=== PATIENT | female | born 1950 | race African-American/Black ===

== ENCOUNTER 2020-04-26 18:12 | Inpatient (IN) | payer BC, MEDICARE ==
[~2020-04-26] VITALS: Ht 172.7 cm; Wt 92.0 kg
[2020-04-26] MEDS ORDERED: ISOS10TA53 PO (18:35)
[2020-04-26] MEDS ORDERED: ABIL5 PO (18:35)
[2020-04-26] MEDS ORDERED: LISI-186 PO (18:35)
[2020-04-26] MEDS ORDERED: GABA-532 PO (18:35)
[2020-04-26] MEDS ORDERED: ASPI-1497 PO (18:35)
[2020-04-26] MEDS ORDERED: METO25TA6 PO (18:35)
[2020-04-26] MEDS ORDERED: FERR15DR7 PO (18:35)
[2020-04-26] MEDS ORDERED: ATOR-2 MT (18:35)
[2020-04-26] MEDS ORDERED: NALT50TA5 GT (18:35)
[2020-04-26] MEDS ORDERED: TRAZ150T78 MT (18:35)
[2020-04-26] MEDS ORDERED: SODIUM CHLORIDE 0.9% 1,000 ML IV ONE (18:45)
[2020-04-26 19:51] LABS: BASOPHILS % 0.6 % (0.0-2.0); EOSINOPHILS % 2.1 % (0.0-5.0); HEMATOCRIT. 39.2 % (36.0-48.0); LYMPHOCYTES % 18.3 % (20.0-50.0); MEAN CORPUSCULAR HEMOGLOBIN 30.6 pg (28.0-32.0); MEAN CORPUSCULAR VOLUME 92.2 fL (81.0-99.0); MEAN PLATELET VOLUME 10.9 fl (7.4-10.4); MONOCYTES % 6.1 % (2.0-8.0); NEUTROPHILS % 72.9 % (40.0-76.0); PLATELET 129 x1000/uL (130-400); RED BLOOD CELL COUNT 4.25 mill/uL (4.2-5.4); RED CELL DISTRIBUTION WIDTH 12.8 % (11.6-14.6)
[2020-04-26 19:52] LABS: PROTHROMBIN TIME 10.3 sec (9.6-11.0)
[2020-04-26 19:53] LABS: CHLORIDE 107 mEq/L (98-107)
[2020-04-26 20:00] LABS: LDL CHOLESTEROL 75 mg/dL (5-100)
[2020-04-26] MEDS ORDERED: MAGNESIUM/ALUMINUM HYDROXIDE/SIMETHICONE 30ML UDC PO PRN (20:45)
[2020-04-26] MEDS ORDERED: DOCUSATE SODIUM 100MG CAPSULE PO PRN (20:45)
[2020-04-26] MEDS ORDERED: CLONIDINE 0.1MG TABLET PO PRN (20:45)
[2020-04-26] MEDS ORDERED: ACETAMINOPHEN 325MG TABLET PO PRN (20:45)
[2020-04-26] MEDS ORDERED: ONDANSETRON HCL 4MG/2ML INJ IV PRN (20:45)
[2020-04-26] MEDS ORDERED: GUAIFENESIN 200MG/10ML SUGAR FREE UDC PO PRN (20:45)
[2020-04-26] MEDS ORDERED: CHLORTHALIDONE 25MG TABLET PO SCH (21:00)
[2020-04-26] MEDS ORDERED: ASPIRIN 81MG TABLET PO ONE (21:00)
[2020-04-26] MEDS ORDERED: ISOSORBIDE DINITRATE 10MG TABLET PO SCH (21:00)
[2020-04-26] MEDS ORDERED: LISINOPRIL 5MG TABLET PO SCH (21:00)
[2020-04-26] MEDS ORDERED: METOPROLOL TARTRATE 25MG TABLET PO SCH (21:00)
[2020-04-27 02:52] VITALS: BP 189/80
[2020-04-27] MEDS ORDERED: ASPIRIN 81MG EC TABLET PO SCH (09:00)
[2020-04-27] MEDS ORDERED: CLOPIDOGREL 75MG TABLET PO SCH (09:00)
== END 2020-04-27 05:51 | disposition left against medical advice (07) | DRG 300 ==
LOC: ER 18:12 → MICUSO 19:33 → EDBEDREQTM 20:18 → EDBEDREQ 20:18 → 3WST 04-27 02:04
PROVIDERS: ADMIT Hospitalist; ATTEND Hospitalist
DX: I70.90 Unspecified atherosclerosis (principal); I24.8 Other forms of acute ischemic heart disease; G45.9 Transient cerebral ischemic attack, unspecified; E11.9 Type 2 diabetes mellitus without complications; E78.5 Hyperlipidemia, unspecified; I10 Essential (primary) hypertension; E78.00 Pure hypercholesterolemia, unspecified; Z79.82 Long term (current) use of aspirin; I25.2 Old myocardial infarction; Z79.899 Other long term (current) drug therapy; Z95.1 Presence of aortocoronary bypass graft; Z86.73 Personal history of transient ischemic attack (TIA), and cerebral infarction without residual deficits; I16.0 Hypertensive urgency
CPT/HCPCS: 36415; 71045; 80053; 83721; 84484; 85025; 93005; 93970; 99285; J7030